=== PATIENT | female | born 1995 | race Caucasian/White ===

== ENCOUNTER 2018-12-12 17:10 | Emergency (ER) | payer OTHER ==
[2018-12-12 20:44] LABS: ABS Basophils 0 10^3/ul (0-0.2); ABS Eosinophils 0 10^3/ul (0-0.6); ABS Lymphocytes 2.1 10^3/ul (1.0-4.8); ABS Monocytes 0.3 10^3/ul (0-0.8); ABS Neutrophils 3.7 10^3/ul (1.5-7.7); ABS Nucleated RBC 0 10^3/ul; Eosinophil % 0.6 %; Hematocrit 43 % (35-47); Hemoglobin 14.4 g/dl (12.0-16.0); Lymphocyte % 34.4 %; Mean Corpuscular HGB Conc 34 g/dl (31-36); Mean Corpuscular Hemoglobin 29 pg (27-31); Mean Corpuscular Volume 87 fL (80-97); Mean Platelet Volume 8.9 fL (7.4-10.4); Nucleated Red Blood Cells % 0.1; Platelet Count 151 10^3/ul (150-450); Red Blood Count 4.93 10^6/ul (4.00-5.40); Red Cell Distribution Width 14 % (10.5-15); White Blood Count 6.2 10^3/ul (3.5-10.8)
[2018-12-12 21:03] LABS: ALT 8 U/L (7-52); AST 17 U/L (13-39); Albumin/Globulin Ratio 1.9 (1-3); Alkaline Phosphatase 40 U/L (34-104); Anion Gap 8 mmol/L (2-11); BUN/Creatinine Ratio 22.4 (8-20); Blood Urea Nitrogen 15 mg/dL (6-24); C Reactive Protein 3.95 mg/L (<8.01); CO2 Carbon Dioxide 29 mmol/L (22-32); Calcium 9.9 mg/dL (8.6-10.3); Chloride 103 mmol/L (101-111); EGFR African American 133.2 (>60); EGFR Non-African American 110.1 (>60); Globulin 2.6 g/dL (2-4); Glucose 96 mg/dL (70-100); Potassium 3.7 mmol/L (3.5-5.0); Sodium 140 mmol/L (135-145); Total Protein 7.6 g/dL (6.4-8.9)
[2018-12-12 21:08] LABS: HCG Pregnancy < 0.60 mIU/mL
[2018-12-12] MEDS ORDERED: Iohexol 300* (CONTRAST) 10 ML SDV IV ONE (21:23)
--- NOTE | 2018-12-12 21:43 | ED ---
Abdominal Pain/Female - HPI Summary HPI Summary: This patient is a 23 year old female presenting to [facility] with a chief complaint of rectal bleed since 2 days ago. She has been experiencing abdominal pain in her RLQ, chills, and nausea. She had a rectal exam at [facility] earlier today due to noticing red stool when they stated she had a rectal bleed and advised her to come here. She states she has been experiencing sharp RLQ pain for the last 3 days. She rates her pain 4/10 in severity. - History of Current Complaint Chief Complaint: EDGIBleed Stated Complaint: RECTAL BLEEDING/ABD PAIN Time Seen by Provider: 12/12/18 20:40 Hx Obtained From: Patient Onset/Duration: Lasting Days Severity Initially: Mild Severity Currently: Mild Pain Intensity: 0 Pain Scale Used: 0-10 Numeric Location: Discrete At: RLQ Associated Signs and Symptoms: Positive: Blood in Stool Allergies/Adverse Reactions: Allergies Allergy/AdvReac Type Severity Reaction Status Date / Time No Known Allergies Allergy Unverified 06/02/14 12:18 PMH/Surg Hx/FS Hx/Imm Hx Endocrine/Hematology History: Denies: Hx Diabetes Cardiovascular History: Denies: Hx Hypertension Comment Only: Other Cardiovascular Problems/Disorders - PT WITH LITTLE PRODUCTIVE COUGH- SORE CHEST Respiratory History: Reports: Hx Asthma - not current problem GI History: Reports: Hx Jaundice - AT , Other GI Disorders - current abd pain History: Denies: Hx Renal Disease Sensory History: Denies: Hx Contacts or Glasses, Hx Hearing Aid Opthamlomology History: Denies: Hx Contacts or Glasses - Surgical History Surgery Procedure, Year, and Place: tonsils OUT-2 YEARS AGO-[facility] [place]. WISDOM TEETH OUT Hx Anesthesia Reactions: No Infectious Disease History: No Infectious Disease History: Denies: Traveled Outside the [place] in Last 30 Days - Family History Known Family History: Negative: Cardiac Disease, Hypertension, Diabetes - Social History Alcohol Use: Occasionally Substance Use Type: Reports: None Smoking Status (MU): Never Smoked Tobacco Review of Systems Positive: Chills Positive: Abdominal Pain, Nausea, Other - Rectal Bleed All Other Systems Reviewed And Are Negative: Yes Physical Exam - Summary Physical Exam Summary: Appearance: Well-appearing, Well-nourished, lying in bed comfortably Skin: Warm, dry, no obvious rash Eyes: sclera anicteric, no conjunctival pallor ENT: mucous membranes moist, pharynx appears normal Neck: Supple, nontender Respiratory: Clear to auscultation, no signs of respiratory distress Cardiovascular: Normal S1, S2. No murmurs. Normal distal pulses in tibial and radial bilaterally. Abdomen: Soft, normal active bowel sounds present. RLQ tenderness. Musculoskeletal: Normal, Strength/ROM Intact. Neurological: A&Ox3, awake and alert, mentation is normal, speech is fluent and appropriate Psychiatric: affect is normal, does not appear anxious or depressed Rectal: Deferred Triage Information Reviewed: Yes Vital Signs On Initial Exam: Initial Vitals Temp Pulse Resp BP Pulse Ox 97.8 F 73 16 136/99 99 12/12/18 17:27 12/12/18 17:27 12/12/18 17:27 12/12/18 17:27 12/12/18 17:27 Vital Signs Reviewed: Yes Diagnostics - Vital Signs Vital Signs Temp Pulse Resp BP Pulse Ox 12/12/18 20:39 74 100 12/12/18 20:38 71 142/97 100 12/12/18 19:33 98.7 F 73 16 121/78 100 12/12/18 17:27 97.8 F 73 16 136/99 99 - Laboratory Lab Results: Lab Results 12/12/18 12/12/18 Range/Units 20:35 20:35 WBC 6.2 (3.5-10.8) 10^3/ul RBC 4.93 (4.00-5.40) 10^6/ul Hgb 14.4 (12.0-16.0) g/dl Hct 43 (35-47) % MCV 87 (80-97) fL MCH 29 (27-31) pg MCHC 34 (31-36) g/dl RDW 14 (10.5-15) % Plt Count 151 (150-450) 10^3/ul MPV 8.9 (7.4-10.4) fL Neut % (Auto) 59.5 % Lymph % (Auto) 34.4 % [place] % (Auto) 5.3 % Eos % (Auto) 0.6 % Baso % (Auto) 0.2 % Absolute Neuts (auto) 3.7 (1.5-7.7) 10^3/ul Absolute Lymphs (auto) 2.1 (1.0-4.8) 10^3/ul Absolute Monos (auto) 0.3 (0-0.8) 10^3/ul Absolute Eos (auto) 0 (0-0.6) 10^3/ul Absolute Basos (auto) 0 (0-0.2) 10^3/ul Absolute Nucleated RBC 0 10^3/ul Nucleated RBC % 0.1 Sodium 140 (135-145) mmol/L Potassium 3.7 (3.5-5.0) mmol/L Chloride 103 (101-111) mmol/L Carbon Dioxide 29 (22-32) mmol/L Anion Gap 8 (2-11) mmol/L BUN 15 (6-24) mg/dL Creatinine 0.67 (0.51-0.95) mg/dL Est GFR ( Amer) 133.2 (>60) Est GFR (Non-Af Amer) 110.1 (>60) BUN/Creatinine Ratio 22.4 H (8-20) Glucose 96 (70-100) mg/dL Calcium 9.9 (8.6-10.3) mg/dL Total Bilirubin 0.80 (0.2-1.0) mg/dL AST 17 (13-39) U/L ALT 8 (7-52) U/L Alkaline Phosphatase 40 (34-104) U/L C-Reactive Protein 3.95 (<8.01) mg/L Total Protein 7.6 (6.4-8.9) g/dL Albumin 5.0 (3.2-5.2) g/dL Globulin 2.6 (2-4) g/dL Albumin/Globulin Ratio 1.9 (1-3) Lipase 26 (11.0-82.0) U/L Beta HCG, Quant < 0.60 mIU/mL Result Diagrams: 12/12/18 20:35 12/12/18 20:35 Lab Statement: Any lab studies that have been ordered have been reviewed, and results considered in the medical decision making process. - CT abdomen/pelvis CT Interpretation Completed By: Radiologist Summary of CT Findings: No acute findings. The appendix is visualized and appears normal. There are a few lymph nodes next to the cecum and terminal ileum. This may represent mesentaric adenitis. However this is a diagnosis of exclusion. No bowel obstruction. No abnormal bowel wall thickening. No mesenteric inflammation. ED Provider has reviewed this report. Abdominal Pain Fem Course/Dx - Course Course Of Treatment: This patient is a 23 year old female presenting to [facility] with a chief complaint of rectal bleed since 2 days ago. Her imaging was unremarkable for acute findings in the abdomen. In consult with Dr. Grajeda, Gastroenterology, he stated that he will see her for follow-up. This plan for discharge was discussed with the patient and she was agreeable with this plan. - Diagnoses Provider Diagnoses: Acute abdominal pain, Rectal bleeding - Provider Notifications Discussed Care Of Patient With: Solomon Grajeda - Gastroenterology Time Discussed With Above Provider: 22:15 Instructed by Provider To: Have Pt Call For Appt. Discharge - Sign-Out/Discharge Documenting (check all that apply): Patient Departure - Discharge Patient Received Moderate/Deep Sedation with Procedure: No - Discharge Plan Condition: Stable Disposition: HOME Patient Education Materials: Acute Abdominal Pain (ED) Referrals: Solomon Grajeda MD [Medical Doctor] - Additional Instructions: The tests we ran on you [place] did not show anything worrisome, like a drop in your blood counts, anemia, or signs of significant inflammation in the abdomen and pelvis. I spoke to the GI doctor airline operations agent rhea for the group, and he will have his office reach out to you on Friday to get you in so they can look into this further. In the meantime if you are feeling worse or the bleeding gets heavier, we should see you back here. - Billing Disposition and Condition Condition: STABLE Disposition: Home - Attestation Statements Document Initiated by Sri: Yes Documenting Scribe: Manuel Gates Provider For Whom Sri is Documenting (Include Credential): Montana Gonzalez MD Scribe Attestation: IManuel, scribed for Montana Gonzalez MD on 12/15/18 at 1604. Scribe Documentation Reviewed: Yes Provider Attestation: The documentation as recorded by the Manuel doherty accurately reflects the service I personally performed and the decisions made by me, Montana Gonzalez MD Status of [employer] Document: Viewed
[2018-12-13 00:27] LABS: Urine Appearance Clear; Urine Bacteria Absent (Absent); Urine Bilirubin Negative (Negative); Urine Blood 1+ (Negative); Urine Color Yellow; Urine Glucose Negative (Negative); Urine Ketones Negative (Negative); Urine Nitrite Negative (Negative); Urine Protein Negative (Negative); Urine Red Blood Cell Trace(0-2/hpf) (Absent); Urine Specific Gravity 1.021 (1.010-1.030); Urine Squamous Epithelial Cell Present (Absent); Urine Urobilinogen Negative (Negative); Urine White Blood Cell Trace(0-5/hpf) (Absent)
[2018-12-13 01:21] VITALS: BP 121/75
== END 2018-12-13 01:28 | disposition home or self-care (01) ==
LOC: ED 17:10
DX: R10.9 Unspecified abdominal pain (principal); K62.5 Hemorrhage of anus and rectum; R11.0 Nausea
CPT/HCPCS: 36415; 74177; 80053; 81003; 81015; 83690; 84702; 85025; 86140; 87086; 99283; Q9967